=== PATIENT | female | born 1980 | race Caucasian/White ===

== ENCOUNTER → 2017-11-23 | Outpatient (CLI) | payer OTHER ==
--- NOTE | 2017-11-23 10:47 | RAD ---
Indication: Right upper quadrant and mid abdominal pain Technique: Grayscale, color Doppler and spectral waveform images of the abdomen. Comparison: None Findings: No gallstones, pericholecystic fluid or gallbladder wall thickening. Visualized pancreas is within normal limits. Aorta and IVC are patent. Liver measures 18 cm in craniocaudal dimension with diffusely increased echogenicity and decreased through transmission without apparent focal lesion. Main portal vein is patent with hepatopedal flow. CBD measures 3 mm and is within normal limits. Right kidney measures 10 cm in length without hydronephrosis. Spleen measures 10.5 cm in longest dimension and is normal in size. Left kidney measures 11.3 cm in length without hydronephrosis. Impression: 1. Hepatic steatosis. 2. No cholelithiasis or sonographic evidence of acute cholecystitis.
== END | disposition home or self-care (01) ==
LOC: US 09:49
PROVIDERS: ATTEND Nurse Practitioner
DX: K76.0 Fatty (change of) liver, not elsewhere classified (principal)
CPT/HCPCS: 76700

== ENCOUNTER → 2020-12-28 | Outpatient (CLI) | payer OTHER ==
--- NOTE | 2020-12-28 15:51 | RAD ---
EXAM: Left ankle, 3 views. HISTORY: Fall. Pain. Swelling. COMPARISON: None. FINDINGS: 3 views of the left ankle are obtained. There is lateral predominant ankle soft tissue swel ling. No displaced fracture is seen. The ankle mortise is intact. There is nodular lesion. There is a small plantar spur. IMPRESSION: Lateral predominant ankle soft tissue swelling. Electronically signed by: Emma Alvarez MD (12/28/2020 3:48 PM) [id number]
== END ==
LOC: RAD 15:35
PROVIDERS: ATTEND Registered Nurse
DX: M77.32 Calcaneal spur, left foot (principal)
CPT/HCPCS: 73610